=== PATIENT | female | born 1970 | race Asian ===

== ENCOUNTER 2019-09-17 12:19 | Emergency (ER) | payer OTHER, SELFPAY ==
[2019-09-17 12:31] VITALS: BP 162/87; PULSE 58; RESP 16; TEMP 36.9; O2SAT 100; BMI 29.7
--- NOTE | 2019-09-17 12:34 | PC.NURSE ---
has hx of vertigo
--- NOTE | 2019-09-17 12:35 | ED.DIZZY ---
HPI - Dizziness <Ema López PA-C - Last Filed: 09/17/19 16:48> General Chief Complaint: Dizziness Stated Complaint: Dizziness, Weak, stomach hurts when she poops Time Seen by Provider: 09/17/19 12:32 Source: family Mode of arrival: Ambulatory History of Present Illness HPI Narrative: This is a well-appearing 49-year-old female with a history of ear problems and episodes of dizziness who presents to the emergency department because of left-sided ear pain, sounds in her ear for the last week, and generalized weakness, with dizziness and nausea since yesterday evening that cme on gradually. She states that every day she has some ear discomfort, this is chronic for her she has seen specialists for this years ago. However for the last week this has been worsening and includes left-sided ear pain. Yesterday evening she began experiencing some nausea and dizziness associated with this and still has this somewhat this morning she was able to eat a meal for dinner last night but only had crackers today because of the nausea. Last night she also felt some generalized weakness as if her limbs feel heavy. She notes that her weakness was particularly strong this morning when she was on the toilet having a bowel movement, she was having sharp pain (which she had never had) around the center of her belly and she says she broke out in a sweat all over and felt extremely weak but that it was a normal bowel movement and she was not straining. She states that she has bowel movements 1 to 3 times a week and these have been normal for her--denies trouble with constipation or any diarrhea, she takes probiotics on a regular basis. She states she has been drinking less fluids since yesterday she did try to take some Pedialyte, but thinks she definitely did not drink very much. She denies any blood in her stool, dark tarry stools, diarrhea, constipation, coordination difficulty, speech changes, headache, palpitations, syncope, fever, joint pain, muscle aches or any other symptoms. Related Data Home Medications Medication Instructions Recorded Confirmed CHOLECALCIFEROL (VITAMIN D3) #0 07/02/09 (Vitamin D3) Loratadine (Claritin) PRN #0 07/02/09 VITAMIN C - #0 07/02/09 (VITAMIN C) Previous Rx's Medication Instructions Recorded meclizine 25 mg PO TID #12 tab 09/17/19 ondansetron HCl [Zofran] 4 mg PO Q6H #30 tab 09/17/19 Review of Systems <Ema López PA-C - Last Filed: 09/17/19 16:48> Review of Systems Narrative: GENERAL: Denies chills, fatigue, malaise, fever, sweats. HEENT: Positive for sinus pain, ear pain, dizziness negative for sore throat, difficulty swallowing RESPIRATORY: Denies dyspnea, cough, wheezing, hemoptysis, sputum. CARDIOVASCULAR: Denies chest pain, palpitations, orthopnea, edema, GASTROINTESTINAL: Positive for nausea, one short episode of abdominal pain, negative for vomiting, diarrhea, constipation, melena, blood in stool. : Denies dysuria, frequency, incontinence, hematuria, positive for chronic urinary retention (sensation of bladder not being empty after peeing). MUSCULOSKELETAL: Positive for generalized weak feeling, negative for joint pain, or bony pain SKIN: Denies rash, skin lesions, or other NEUROLOGIC: Positive for feeling of generalized weakness, slight head pressure, negative for headache, numbness, change in speech, confusion, seizures, incoordination. PSYCHIATRIC: No concerning psychosocial issues. 12 point review of systems is negative except for those stated above Patient History <Ema López PA-C - Last Filed: 09/17/19 16:48> Social History Smoking Status: Never smoker Smoking Status: Never smoker Substance Use Type: does not use Exam <Ema López PA-C - Last Filed: 09/17/19 16:48> Narrative Exam Narrative: GENERAL: 49 year old patient appears stated age. Well-nourished, well-developed patient, in mild distress. HEAD: Atraumatic. Normocephalic. EYES: Pupils equal round and reactive. Extraocular motions intact. No scleral icterus. No injection or drainage. ENT: Bilateral TMs have scarring present, both are pearly bonilla in appearance with a cone of light visible no apparent effusion, there is very mild frontal sinus tenderness on the left, negative maxillary sinus tenderness, Nose without bleeding, purulent drainage. Throat without erythema, tonsillar hypertrophy or exudate. Airway patent. NECK: Trachea midline. Non tender CARDIOVASCULAR: Regular rate and rhythm without murmurs, gallops, or rubs. RESPIRATORY: Clear to auscultation. Breath sounds equal bilaterally. No wheezes, rales, or rhonchi. GASTROINTESTINAL: Abdomen soft, non-tender, nondistended. EXTREMITIES: No edema or joint tenderness. BACK: Nontender without deformity or crepitance. No flank tenderness. NEURO: AOx3. Cranial nerves are intact, strength is intact and equal bilaterally 5/5 UEs and LEs, sensation is intact, coordination is intact SKIN: No rash or erythema of visible areas Initial Vital Signs Initial Vital Signs: Vital Signs Temperature 98.5 F 09/17/19 12:31 Pulse Rate 58 L 09/17/19 12:31 Respiratory Rate 16 09/17/19 12:31 Blood Pressure 162/87 H 09/17/19 12:31 Pulse Oximetry 100 09/17/19 12:31 <Walker Ordonez DO - Last Filed: 09/17/19 17:10> Initial Vital Signs Initial Vital Signs: Vital Signs Temperature 98.5 F 09/17/19 12:31 Pulse Rate 58 L 09/17/19 12:31 Respiratory Rate 16 09/17/19 12:31 Blood Pressure 162/87 H 09/17/19 12:31 Pulse Oximetry 100 09/17/19 12:31 Course <Ema López PA-C - Last Filed: 09/17/19 16:48> Orders Ordered: ED Orders 09/17/19 12:35 EKG-12 Lead Stat 09/17/19 12:45 Complete Blood Count AUTO DIFF Stat Comprehensive Metabolic Panel Stat Troponin I Stat 09/17/19 13:37 Urinalysis Screen (Dip Only) Stat Urine Microscopic Stat Discontinued Medications Sodium Chloride (Normal Saline 0.9%) 1,000 mls @ 500 mls/hr IV BOLUS ONE Stop: 09/17/19 15:06 Last Infusion: 09/17/19 15:27 Dose: 500 mls/hr Documented by: Admin: 09/17/19 13:30 Dose: 500 mls/hr Documented by: MEISENB Meclizine HCl (Antivert) 25 mg PO NOW ONE Stop: 09/17/19 13:08 Last Admin: 09/17/19 13:30 Dose: 25 mg Documented by: MEISENB Ondansetron HCl (Zofran) 4 mg IV NOW ONE Stop: 09/17/19 13:08 Last Admin: 09/17/19 13:31 Dose: 4 mg Documented by: JAYME Ondansetron HCl (Zofran) 4 mg IV NOW ONE Stop: 09/17/19 14:38 Vital Signs Vital signs: Vital Signs - 8 hr 09/17/19 12:31 09/17/19 13:30 09/17/19 14:00 Temperature 98.5 F Pulse Rate 58 L 67 55 L Respiratory Rate 16 19 18 Blood Pressure 162/87 H Blood Pressure [Left Arm] 142/90 H 129/73 Pulse Oximetry 100 100 99 <Walker Ordonez DO - Last Filed: 09/17/19 17:10> Orders Ordered: ED Orders 09/17/19 12:35 EKG-12 Lead Stat 09/17/19 12:45 Complete Blood Count AUTO DIFF Stat Comprehensive Metabolic Panel Stat Troponin I Stat 09/17/19 13:37 Urinalysis Screen (Dip Only) Stat Urine Microscopic Stat Discontinued Medications Sodium Chloride (Normal Saline 0.9%) 1,000 mls @ 500 mls/hr IV BOLUS ONE Stop: 09/17/19 15:06 Last Infusion: 09/17/19 15:27 Dose: 500 mls/hr Documented by: Admin: 09/17/19 13:30 Dose: 500 mls/hr Documented by: JAYME Meclizine HCl (Antivert) 25 mg PO NOW ONE Stop: 09/17/19 13:08 Last Admin: 09/17/19 13:30 Dose: 25 mg Documented by: JAYME Ondansetron HCl (Zofran) 4 mg IV NOW ONE Stop: 09/17/19 13:08 Last Admin: 09/17/19 13:31 Dose: 4 mg Documented by: JAYME Ondansetron HCl (Zofran) 4 mg IV NOW ONE Stop: 09/17/19 14:38 Vital Signs Vital signs: Vital Signs - 8 hr 09/17/19 12:31 09/17/19 13:30 09/17/19 14:00 Temperature 98.5 F Pulse Rate 58 L 67 55 L Respiratory Rate 16 19 18 Blood Pressure 162/87 H Blood Pressure [Left Arm] 142/90 H 129/73 Pulse Oximetry 100 100 99 MDM - Dizziness <Ema López PA-C - Last Filed: 05/20/20 16:48> Medical Records Attestation: I reviewed the patient's medical records. Lab Data Attestation: I reviewed the patient's lab results. Result diagrams: 09/17/19 12:45 09/17/19 12:45 Labs: Lab Results 09/17/19 09/17/19 09/17/19 Range/Units 12:45 12:45 12:45 WBC 6.0 (4.5-11.0) X10^3/uL RBC 4.67 (4.0-5.2) X10^6/uL Hgb 14.8 (12.0-16.0) g/dL Hct 43.1 (36-46) % MCV 92.3 (80-100) fL MCH 31.7 (26-34) PG MCHC 34.3 (30-36) % RDW 12.9 (11.6-14.8) % Plt Count 269 (150-400) X10^3/uL Neut % (Auto) 82.8 H (50-75) % Lymph % (Auto) 11.1 L (25-40) % [place] % (Auto) 4.9 (3-14) % Eos % (Auto) 0.8 L (2-4) % Baso % (Auto) 0.4 (0-2) % Neut # (Auto) 5000 (3095-0402) /uL Lymph # (Auto) 700 L (8102-9278) /uL [place] # (Auto) 300 (0-900) /uL Eos # (Auto) 0 (0-450) /uL Baso # (Auto) 0 (0-100) /uL Sodium 139 (137-145) mmol/L Potassium 4.5 (3.4-5.1) mmol/L Chloride 104 (98-107) mmol/L Carbon Dioxide 23 (22-32) mmol/L BUN 12 (7-17) mg/dL Creatinine 0.47 L (0.52-1.04) mg/dL Estimated GFR > 60.0 (>60) mL/min BUN/Creatinine Ratio 25.5 H (6-22) Glucose 111 H (70-100) mg/dL Calcium 9.9 (8.4-10.2) mg/dL Total Bilirubin 0.7 (0.2-1.3) mg/dL AST 31 (14-36) IU/L ALT 24 (<35) IU/L Alkaline Phosphatase 66 (38-126) U/L Troponin I < 0.012 (0.01-0.034) ng/mL Total Protein 9.1 H (6.3-8.2) g/dL Albumin 5.1 H (3.5-5.0) g/dL Globulin 4.0 (1.7-4.1) g/dL Albumin/Globulin Ratio 1.3 (1.0-2.8) Urine Color Urine Appearance Urine pH (4.5-8.0) Ur Specific [place] (1.000-1.035) Urine Protein (Negative) Urine Glucose (UA) (Negative) g/dL Urine Ketones (NEGATIVE) Urine Occult Blood (Negative) Urine Nitrate (Negative) Urine Bilirubin (NEGATIVE) Urine Urobilinogen (0.2) E.U./dL Ur Leukocyte Esterase (NEGATIVE) Urine RBC (0-5/HPF) Urine WBC (0-5/HPF) Amorphous Sediment Urine Bacteria (None) Ur Culture Indicated? 09/17/19 Range/Units 13:37 WBC (4.5-11.0) X10^3/uL RBC (4.0-5.2) X10^6/uL Hgb (12.0-16.0) g/dL Hct (36-46) % MCV (80-100) fL MCH (26-34) PG MCHC (30-36) % RDW (11.6-14.8) % Plt Count (150-400) X10^3/uL Neut % (Auto) (50-75) % Lymph % (Auto) (25-40) % [place] % (Auto) (3-14) % Eos % (Auto) (2-4) % Baso % (Auto) (0-2) % Neut # (Auto) (3257-9862) /uL Lymph # (Auto) (3149-9680) /uL [place] # (Auto) (0-900) /uL Eos # (Auto) (0-450) /uL Baso # (Auto) (0-100) /uL Sodium (137-145) mmol/L Potassium (3.4-5.1) mmol/L Chloride (98-107) mmol/L Carbon Dioxide (22-32) mmol/L BUN (7-17) mg/dL Creatinine (0.52-1.04) mg/dL Estimated GFR (>60) mL/min BUN/Creatinine Ratio (6-22) Glucose (70-100) mg/dL Calcium (8.4-10.2) mg/dL Total Bilirubin (0.2-1.3) mg/dL AST (14-36) IU/L ALT (<35) IU/L Alkaline Phosphatase (38-126) U/L Troponin I (0.01-0.034) ng/mL Total Protein (6.3-8.2) g/dL Albumin (3.5-5.0) g/dL Globulin (1.7-4.1) g/dL Albumin/Globulin Ratio (1.0-2.8) Urine Color Yellow Urine Appearance Cloudy Urine pH 7.0 (4.5-8.0) Ur Specific [place] 1.010 (1.000-1.035) Urine Protein Negative (Negative) Urine Glucose (UA) Negative (Negative) g/dL Urine Ketones Negative (NEGATIVE) Urine Occult Blood Negative (Negative) Urine Nitrate Negative (Negative) Urine Bilirubin Negative (NEGATIVE) Urine Urobilinogen 0.2 (0.2) E.U./dL Ur Leukocyte Esterase Trace H (NEGATIVE) Urine RBC 0-1/hpf (0-5/HPF) Urine WBC None seen (0-5/HPF) Amorphous Sediment 2+ Urine Bacteria None seen (None) Ur Culture Indicated? Cult not indicated ECG Data Attestation: I personally reviewed and interpreted this ECG as follows: Interpretation: NSR rate of 64 MN interval 146 QRS 74ms P-R-T axes 16 44 50, no ST changes--EKG also reviewed by Dr. Ordonez ED attending [facility] Narrative Medical decision making narrative: This is a well-appearing 49 year with a history significant for chronic ear discomfort bilaterally, tinnitus and history episodic vertigo who presents to the emergency department with dizziness nausea and feeling of weakness since last night. Her symptoms are somewhat similar to her normal but worse, particularly the dizziness. She had been worked up for this extensively and seen specialists due to her previous episodes of dizziness. Neuro exam was negative. Patient also complained of a brief episode of abdominal pain that occurred while having a bowel movement this morning, with associated probable vaso-vagal syndrome, abdominal exam was benign, very low suspicion for acute abdominal process. History and EKG were not suggestive of cardiac etiology for her dizziness. Based on history and exam I also have very low suspicion for CVA or TIA. Patient had improvement with Zofran and meclizine, as well as 500 mL of normal saline. Suspect BPPV versus viral illness. She was discharged with plans for PCP follow-up, [facility], as well as prescriptions for Zofran and meclizine. Patient was feeling much improved upon discharge. She was provided with a work note through Sunday as needed and advised not to operate any machinery or drive while taking meclizine or while having symptoms of dizziness. She was also given information regarding the Karla maneuver for BPPV. COVID test is pending at time of discharge. <Walker Ordonez, - Last Filed: 09/17/19 17:10> Lab Data Labs: Lab Results 09/17/19 09/17/19 09/17/19 Range/Units 12:45 12:45 12:45 WBC 6.0 (4.5-11.0) X10^3/uL RBC 4.67 (4.0-5.2) X10^6/uL Hgb 14.8 (12.0-16.0) g/dL Hct 43.1 (36-46) % MCV 92.3 (80-100) fL MCH 31.7 (26-34) PG MCHC 34.3 (30-36) % RDW 12.9 (11.6-14.8) % Plt Count 269 (150-400) X10^3/uL Neut % (Auto) 82.8 H (50-75) % Lymph % (Auto) 11.1 L (25-40) % [place] % (Auto) 4.9 (3-14) % Eos % (Auto) 0.8 L (2-4) % Baso % (Auto) 0.4 (0-2) % Neut # (Auto) 5000 (7476-1732) /uL Lymph # (Auto) 700 L (5682-2099) /uL [place] # (Auto) 300 (0-900) /uL Eos # (Auto) 0 (0-450) /uL Baso # (Auto) 0 (0-100) /uL Sodium 139 (137-145) mmol/L Potassium 4.5 (3.4-5.1) mmol/L Chloride 104 (98-107) mmol/L Carbon Dioxide 23 (22-32) mmol/L BUN 12 (7-17) mg/dL Creatinine 0.47 L (0.52-1.04) mg/dL Estimated GFR > 60.0 (>60) mL/min BUN/Creatinine Ratio 25.5 H (6-22) Glucose 111 H (70-100) mg/dL Calcium 9.9 (8.4-10.2) mg/dL Total Bilirubin 0.7 (0.2-1.3) mg/dL AST 31 (14-36) IU/L ALT 24 (<35) IU/L Alkaline Phosphatase 66 (38-126) U/L Troponin I < 0.012 (0.01-0.034) ng/mL Total Protein 9.1 H (6.3-8.2) g/dL Albumin 5.1 H (3.5-5.0) g/dL Globulin 4.0 (1.7-4.1) g/dL Albumin/Globulin Ratio 1.3 (1.0-2.8) Urine Color Urine Appearance Urine pH (4.5-8.0) Ur Specific [place] (1.000-1.035) Urine Protein (Negative) Urine Glucose (UA) (Negative) g/dL Urine Ketones (NEGATIVE) Urine Occult Blood (Negative) Urine Nitrate (Negative) Urine Bilirubin (NEGATIVE) Urine Urobilinogen (0.2) E.U./dL Ur Leukocyte Esterase (NEGATIVE) Urine RBC (0-5/HPF) Urine WBC (0-5/HPF) Amorphous Sediment Urine Bacteria (None) Ur Culture Indicated? 09/17/19 Range/Units 13:37 WBC (4.5-11.0) X10^3/uL RBC (4.0-5.2) X10^6/uL Hgb (12.0-16.0) g/dL Hct (36-46) % MCV (80-100) fL MCH (26-34) PG MCHC (30-36) % RDW (11.6-14.8) % Plt Count (150-400) X10^3/uL Neut % (Auto) (50-75) % Lymph % (Auto) (25-40) % [place] % (Auto) (3-14) % Eos % (Auto) (2-4) % Baso % (Auto) (0-2) % Neut # (Auto) (0129-2173) /uL Lymph # (Auto) (6077-9082) /uL [place] # (Auto) (0-900) /uL Eos # (Auto) (0-450) /uL Baso # (Auto) (0-100) /uL Sodium (137-145) mmol/L Potassium (3.4-5.1) mmol/L Chloride (98-107) mmol/L Carbon Dioxide (22-32) mmol/L BUN (7-17) mg/dL Creatinine (0.52-1.04) mg/dL Estimated GFR (>60) mL/min BUN/Creatinine Ratio (6-22) Glucose (70-100) mg/dL Calcium (8.4-10.2) mg/dL Total Bilirubin (0.2-1.3) mg/dL AST (14-36) IU/L ALT (<35) IU/L Alkaline Phosphatase (38-126) U/L Troponin I (0.01-0.034) ng/mL Total Protein (6.3-8.2) g/dL Albumin (3.5-5.0) g/dL Globulin (1.7-4.1) g/dL Albumin/Globulin Ratio (1.0-2.8) Urine Color Yellow Urine Appearance Cloudy Urine pH 7.0 (4.5-8.0) Ur Specific [place] 1.010 (1.000-1.035) Urine Protein Negative (Negative) Urine Glucose (UA) Negative (Negative) g/dL Urine Ketones Negative (NEGATIVE) Urine Occult Blood Negative (Negative) Urine Nitrate Negative (Negative) Urine Bilirubin Negative (NEGATIVE) Urine Urobilinogen 0.2 (0.2) E.U./dL Ur Leukocyte Esterase Trace H (NEGATIVE) Urine RBC 0-1/hpf (0-5/HPF) Urine WBC None seen (0-5/HPF) Amorphous Sediment 2+ Urine Bacteria None seen (None) Ur Culture Indicated? Cult not indicated Discharge Plan Departure Patient Disposition: Home Clinical Impression: Vertigo Discharge Date/Time: 09/17/19 15:27 Instructions: DI for Vertigo Activity Restrictions/Additional Instructions: Thank you for letting us be part of your care today There is no evidence of an emergent or life threatening illness at this time, but follow up with your doctor in 1-2 days is recommended nonetheless to continue to rule out serious underlying causes of your symptoms. Please call the office for an appointment. Please return to the Emergency Department for any worsening or persistent symptoms. Please take medications as directed. And prescribe Zofran which is anti nausea medication and also meclizine which is a medication that helps with nausea and also help with your dizziness but you should not operate machinery or drive when your taking meclizine. I have also provided a work note for you through Sunday of next week. It is very important he follow up with primary care I have referred you to the [facility] and they can help you get set up with a new primary care physician if you prefer to see someone at [place] rather than [place] as you have stated. Please rest and monitor your symptoms at home, if you develop worsening dizziness, change in your vision, worsening headache, weakness increasing or one-sided weakness or difficulty with coordination, or any other symptoms of concern to you please seek medical care or return to the emergency department. Prescriptions: New ondansetron HCl [Zofran] 4 mg tablet 4 mg PO Q6H Qty: 30 RF: 0 meclizine 25 mg tablet 25 mg PO TID Qty: 12 RF: 0 No Action CHOLECALCIFEROL (VITAMIN D3) (Vitamin D3) Qty: 0 RF: 0 Loratadine (Claritin) PRN Qty: 0 RF: 0 VITAMIN C - (VITAMIN C) Qty: 0 RF: 0 Referrals: [facility] [Outside] Stand Alone Forms: Work Release Note <Walker Ordonez, DO - Last Filed: 09/17/19 17:10> Cosign ED Attending Cosyazature Attestation: Dr Ordonez Co-Sign Statement: I was available for consultation during this patient's emergency department visit. This chart is signed by myself for administrative purposes only. I did not have direct contact with this patient during this visit. They were seen independently by the [facility].
[2019-09-17 13:04] LABS: Add Manual Diff / Slide Review NO; Basophils Absolute Auto 0 /uL (0-100); Basophils Percent Auto 0.4 % (0-2); Eosinophils Absolute Auto 0 /uL (0-450); Eosinophils Percent Auto 0.8 % (2-4); Hematocrit 43.1 % (36-46); Hemoglobin 14.8 g/dL (12.0-16.0); Lymphocytes Absolute Auto 700 /uL (1100-4500); Lymphocytes Percent Auto 11.1 % (25-40); Mean Corpuscular HGB Conc 34.3 % (30-36); Mean Corpuscular Hemoglobin 31.7 PG (26-34); Mean Corpuscular Volume 92.3 fL (80-100); Monocytes Absolute Auto 300 /uL (0-900); Monocytes Percent Auto 4.9 % (3-14); Neutrophils Absolute Auto 5000 /uL (1500-7000); Neutrophils Percent Auto 82.8 % (50-75); Platelet Count 269 X10^3/uL (150-400); Red Blood Cell Count 4.67 X10^6/uL (4.0-5.2); Red Cell Distribution Width 12.9 % (11.6-14.8)
[2019-09-17 13:18] LABS: Alanine Aminotransferase 24 IU/L (<35); Albumin 5.1 g/dL (3.5-5.0); Albumin Globulin Ratio 1.3 (1.0-2.8); Alkaline Phosphatase 66 U/L (38-126); Aspartate Aminotransferase 31 IU/L (14-36); BUN Creatinine Ratio 25.5 (6-22); Bilirubin Total 0.7 mg/dL (0.2-1.3); Blood Urea Nitrogen 12 mg/dL (7-17); Calcium 9.9 mg/dL (8.4-10.2); Carbon Dioxide 23 mmol/L (22-32); Chloride 104 mmol/L (98-107); Estimated Glomerular Filt Rate > 60.0 mL/min (>60); Glucose 111 mg/dL (70-100); HEMOLYSIS < 15 (0-50); Potassium 4.5 mmol/L (3.4-5.1); Sodium 139 mmol/L (137-145); Total Protein 9.1 g/dL (6.3-8.2)
[2019-09-17 13:29] LABS: Troponin I < 0.012 ng/mL (0.01-0.034)
[2019-09-17 13:30] VITALS: BP 142/90; PULSE 67; RESP 19; O2SAT 100
[2019-09-17] MEDS: MECLIZINE HCL 12.5 MG TABLET 25 MG PO (13:30)
[2019-09-17] MEDS: SODIUM CHLORIDE 0.9% 1,000 ML 500 ML IV (13:30)
[2019-09-17] MEDS: ONDANSETRON 4 MG/2 ML INJ IV (13:31)
[2019-09-17 13:48] LABS: Appearance Urine UA CLOUDY; Bilirubin Urine UA NEGATIVE (NEGATIVE); Color Urine UA YELLOW; Glucose Urine UA NEGATIVE (Negative); Ketones Urine UA NEGATIVE (NEGATIVE); Leukocyte Esterase Urine UA TRACE (NEGATIVE); Nitrite Urine UA NEGATIVE (Negative); Occult Blood Urine UA NEGATIVE (Negative); Protein Urine UA NEGATIVE (Negative); Urobilinogen Urine UA 0.2 E.U./dL (0.2)
[2019-09-17 13:50] LABS: Bacteria Urine None Seen; WBC Urine None Seen (0-5/HPF)
[2019-09-17 13:55] LABS: Amorphous Sediment Urine 2+; Culture Indicated Urine Cult Not Indicated; RBC Urine 0-1/HPF (0-5/HPF)
[2019-09-17 14:00] VITALS: BP 129/73; PULSE 55; RESP 18; O2SAT 99
[2019-09-23 22:54] LABS: COVID19 Sendout Not Detected (Not Detected)
== END 2019-09-17 15:27 | disposition home or self-care (01) ==
PROVIDERS: Emergency Provider Student in an Organized Health Care Education/Training Program; Family Provider Internal Medicine
DX: R42 Dizziness and giddiness (principal); H92.02 Otalgia, left ear; Z11.59 Encounter for screening for other viral diseases; R53.1 Weakness; R11.0 Nausea
CPT/HCPCS: 36415; 80053; 81003; 81015; 84484; 85025; 87635; 93005; 96361; 96374; 99284; J2405

== ENCOUNTER → 2020-03-05 10:46 | Outpatient (CLI) | payer OTHER, SELFPAY ==
[2020-03-05 11:48] LABS: Hematocrit 43.5 % (36-46); Hemoglobin 14.7 g/dL (12.0-16.0); Mean Corpuscular HGB Conc 33.9 % (30-36); Mean Corpuscular Hemoglobin 30.6 PG (26-34); Mean Corpuscular Volume 90.5 fL (80-100); Platelet Count 268 X10^3/uL (150-400); Red Cell Distribution Width 12.6 % (11.6-14.8); White Blood Cell Count 3.2 X10^3/uL (4.5-11.0)
[2020-03-05 12:09] LABS: Alanine Aminotransferase 21 IU/L (<35); Albumin Globulin Ratio 1.3 (1.0-2.8); Alkaline Phosphatase 58 U/L (38-126); Aspartate Aminotransferase 28 IU/L (14-36); BUN Creatinine Ratio 26.4 (6-22); Bilirubin Total 0.7 mg/dL (0.2-1.3); Blood Urea Nitrogen 14 mg/dL (7-17); Calcium 10.2 mg/dL (8.4-10.2); Carbon Dioxide 30 mmol/L (22-32); Chloride 103 mmol/L (98-107); Cholesterol 297 mg/dL (140-199); Estimated Glomerular Filt Rate > 60.0 mL/min (>60); Glucose 101 mg/dL (70-100); HDL Cholesterol 58 mg/dL (40-60); HEMOLYSIS < 15 (0-50); LDL Cholesterol Calculated 218 mg/dL (<100); Potassium 4.5 mmol/L (3.4-5.1); Sodium 140 mmol/L (137-145); Triglycerides 107 mg/dL (35-150)
== END ==
PROVIDERS: Family Provider Internal Medicine; PCP Nurse Practitioner Family; Referring Provider Nurse Practitioner Family; Visit Provider Nurse Practitioner Family
DX: Z00.00 Encounter for general adult medical examination without abnormal findings (principal); Z13.6 Encounter for screening for cardiovascular disorders
CPT/HCPCS: 36415; 80053; 80061; 85027

== ENCOUNTER → 2020-11-08 10:05 | Outpatient (CLI) | payer OTHER, SELFPAY ==
[2020-11-08 11:35] LABS: Hematocrit 41.2 % (36-46); Hemoglobin 13.7 g/dL (12.0-16.0); Mean Corpuscular HGB Conc 33.3 % (30-36); Mean Corpuscular Hemoglobin 30.8 PG (26-34); Mean Corpuscular Volume 92.5 fL (80-100); Platelet Count 264 X10^3/uL (150-400); Red Blood Cell Count 4.45 X10^6/uL (4.0-5.2); Red Cell Distribution Width 13.1 % (11.6-14.8); White Blood Cell Count 3.7 X10^3/uL (4.5-11.0)
[2020-11-08 12:26] LABS: Alanine Aminotransferase 23 IU/L (<35); Albumin 4.7 g/dL (3.5-5.0); Albumin Globulin Ratio 1.3 (1.0-2.8); Alkaline Phosphatase 53 U/L (38-126); Aspartate Aminotransferase 27 IU/L (14-36); Bilirubin Total 0.5 mg/dL (0.2-1.3); Blood Urea Nitrogen 12 mg/dL (7-17); Calcium 9.7 mg/dL (8.4-10.2); Carbon Dioxide 25 mmol/L (22-32); Chloride 106 mmol/L (98-107); Cholesterol 275 mg/dL (140-199); Estimated Glomerular Filt Rate > 60.0 mL/min (>60); Globulin 3.7 g/dL (1.7-4.1); Glucose 99 mg/dL (70-100); HDL Cholesterol 58 mg/dL (40-60); HEMOLYSIS < 15 (0-50); LDL Cholesterol Calculated 195 mg/dL (<100); Potassium 4.5 mmol/L (3.4-5.1); Sodium 139 mmol/L (137-145); Total Protein 8.4 g/dL (6.3-8.2); Triglycerides 110 mg/dL (35-150)
== END ==
PROVIDERS: Family Provider Internal Medicine; PCP Nurse Practitioner Family; Referring Provider Nurse Practitioner Family; Visit Provider Nurse Practitioner Family
DX: Z00.00 Encounter for general adult medical examination without abnormal findings (principal); E78.2 Mixed hyperlipidemia
CPT/HCPCS: 36415; 80053; 80061; 85027

== ENCOUNTER → 2020-11-30 09:14 | Outpatient (CLI) | payer OTHER, SELFPAY ==
[2020-12-02 11:39] LABS: Albumin 4.1 g/dL (2.9-4.4); Alpha-1-Globulin 0.2 g/dL (0.0-0.4); Alpha-2-Globulin 0.7 g/dL (0.4-1.0); Gamma Globulin 1.5 g/dL (0.4-1.8); Globulin Total 3.4 g/dL (2.2-3.9); Protein, Total 7.5 g/dL (6.0-8.5)
== END ==
PROVIDERS: Family Provider Internal Medicine; PCP Nurse Practitioner Family; Referring Provider Nurse Practitioner Family; Visit Provider Nurse Practitioner Family
DX: R77.9 Abnormality of plasma protein, unspecified (principal)
CPT/HCPCS: 36415; 84155; 84165

== ENCOUNTER → 2021-06-07 11:03 | Outpatient (CLI) | payer OTHER, SELFPAY ==
[2021-06-07 12:40] LABS: Add Manual Diff / Slide Review NO; Basophils Absolute Auto 0 /uL (0-100); Basophils Percent Auto 0.7 % (0-2); Eosinophils Absolute Auto 100 /uL (0-450); Eosinophils Percent Auto 2.7 % (2-4); Hematocrit 40.1 % (36-46); Hemoglobin 13.4 g/dL (12.0-16.0); Lymphocytes Absolute Auto 1000 /uL (1100-4500); Lymphocytes Percent Auto 27.9 % (25-40); Mean Corpuscular HGB Conc 33.4 % (30-36); Mean Corpuscular Volume 89.9 fL (80-100); Monocytes Absolute Auto 300 /uL (0-900); Monocytes Percent Auto 9.2 % (3-14); Neutrophils Absolute Auto 2100 /uL (1500-7000); Neutrophils Percent Auto 59.5 % (50-75); Platelet Count 252 X10^3/uL (150-400); Red Blood Cell Count 4.46 X10^6/uL (4.0-5.2); Red Cell Distribution Width 14.2 % (11.6-14.8); White Blood Cell Count 3.5 X10^3/uL (4.5-11.0)
[2021-06-07 13:12] LABS: Alanine Aminotransferase 39 IU/L (<35); Albumin 4.8 g/dL (3.5-5.0); Albumin Globulin Ratio 1.3 (1.0-2.8); Alkaline Phosphatase 55 U/L (38-126); Aspartate Aminotransferase 42 IU/L (14-36); BUN Creatinine Ratio 22.2 (6-22); Bilirubin Total 0.6 mg/dL (0.2-1.3); Blood Urea Nitrogen 12 mg/dL (7-17); Calcium 9.9 mg/dL (8.4-10.2); Carbon Dioxide 28 mmol/L (22-32); Chloride 107 mmol/L (98-107); Cholesterol 156 mg/dL (140-199); Estimated Glomerular Filt Rate > 60.0 mL/min (>60); Globulin 3.6 g/dL (1.7-4.1); Glucose 94 mg/dL (70-100); HDL Cholesterol 59 mg/dL (40-60); HEMOLYSIS < 15 (0-50); LDL Cholesterol Calculated 76 mg/dL (<100); Potassium 4.4 mmol/L (3.4-5.1); Sodium 142 mmol/L (137-145); Total Protein 8.4 g/dL (6.3-8.2); Triglycerides 107 mg/dL (35-150)
== END ==
PROVIDERS: Family Provider Internal Medicine; PCP Nurse Practitioner Family; Referring Provider Nurse Practitioner Family; Visit Provider Nurse Practitioner Family
DX: E78.2 Mixed hyperlipidemia (principal); R77.9 Abnormality of plasma protein, unspecified; Z00.00 Encounter for general adult medical examination without abnormal findings
CPT/HCPCS: 36415; 80053; 80061; 85025

== ENCOUNTER → 2021-11-23 15:25 | Outpatient (CLI) | payer OTHER, SELFPAY ==
[2021-11-23 16:06] LABS: Add Manual Diff / Slide Review NO; Basophils Absolute Auto 0 /uL (0-100); Basophils Percent Auto 0.8 % (0-2); Eosinophils Absolute Auto 100 /uL (0-450); Eosinophils Percent Auto 3.7 % (2-4); Hematocrit 41.6 % (36-46); Lymphocytes Absolute Auto 1200 /uL (1100-4500); Lymphocytes Percent Auto 33.3 % (25-40); Mean Corpuscular HGB Conc 33.8 % (30-36); Mean Corpuscular Hemoglobin 30.2 PG (26-34); Mean Corpuscular Volume 89.3 fL (80-100); Monocytes Absolute Auto 300 /uL (0-900); Monocytes Percent Auto 8.1 % (3-14); Neutrophils Absolute Auto 2000 /uL (1500-7000); Neutrophils Percent Auto 54.1 % (50-75); Platelet Count 237 X10^3/uL (150-400); Red Blood Cell Count 4.66 X10^6/uL (4.0-5.2); Red Cell Distribution Width 13.4 % (11.6-14.8); White Blood Cell Count 3.7 X10^3/uL (4.5-11.0)
[2021-11-23 16:51] LABS: Alanine Aminotransferase 33 IU/L (<35); Albumin 4.8 g/dL (3.5-5.0); Albumin Globulin Ratio 1.5 (1.0-2.8); Alkaline Phosphatase 61 U/L (38-126); Aspartate Aminotransferase 33 IU/L (14-36); BUN Creatinine Ratio 32.7 (6-22); Bilirubin Total 0.6 mg/dL (0.2-1.3); Blood Urea Nitrogen 16 mg/dL (7-17); Calcium 9.4 mg/dL (8.4-10.2); Carbon Dioxide 25 mmol/L (22-32); Chloride 104 mmol/L (98-107); Cholesterol 160 mg/dL (140-199); Estimated Glomerular Filt Rate > 60 mL/min (>60); Globulin 3.3 g/dL (1.7-4.1); Glucose 86 mg/dL (70-100); HDL Cholesterol 68 mg/dL (40-60); HEMOLYSIS 29 (0-50); LDL Cholesterol Calculated 73 mg/dL (<100); Potassium 4.1 mmol/L (3.4-5.1); Sodium 139 mmol/L (137-145); Total Protein 8.1 g/dL (6.3-8.2); Triglycerides 96 mg/dL (35-150)
[2021-11-23 17:07] LABS: Free T3, Triiodothyronine Free 3.68 pg/mL (2.77-5.27); Free T4, Direct Thyroxine 1.08 ng/dL (0.78-2.19)
[2021-11-23 17:21] LABS: Thyroid Stimulating Hormone 0.945 uIU/mL (0.47-4.68)
== END ==
PROVIDERS: Family Provider Internal Medicine; PCP Nurse Practitioner; Referring Provider Nurse Practitioner; Visit Provider Nurse Practitioner
DX: R53.83 Other fatigue (principal); E78.2 Mixed hyperlipidemia; Z79.899 Other long term (current) drug therapy
CPT/HCPCS: 36415; 80053; 80061; 84439; 84443; 84481; 85025

== ENCOUNTER → 2023-05-22 09:18 | Outpatient (CLI) | payer OTHER, SELFPAY ==
[2023-05-22 10:27] LABS: Add Manual Diff / Slide Review NO; Basophils Absolute Auto 0 /uL (0-100); Basophils Percent Auto 1.1 % (0-2); Eosinophils Absolute Auto 100 /uL (0-450); Eosinophils Percent Auto 2.9 % (2-4); Hematocrit 41.1 % (36-46); Hemoglobin 13.7 g/dL (12.0-16.0); Lymphocytes Absolute Auto 1100 /uL (1100-4500); Lymphocytes Percent Auto 31.1 % (25-40); Mean Corpuscular HGB Conc 33.3 % (30-36); Mean Corpuscular Hemoglobin 29.6 PG (26-34); Mean Corpuscular Volume 88.9 fL (80-100); Monocytes Absolute Auto 300 /uL (0-900); Monocytes Percent Auto 7.2 % (3-14); Neutrophils Absolute Auto 2000 /uL (1500-7000); Neutrophils Percent Auto 57.7 % (50-75); Platelet Count 258 X10^3/uL (150-400); Red Blood Cell Count 4.62 X10^6/uL (4.0-5.2); Red Cell Distribution Width 13.4 % (11.6-14.8); White Blood Cell Count 3.5 X10^3/uL (4.5-11.0)
[2023-05-22 10:49] LABS: Alanine Aminotransferase 53 IU/L (<35); Albumin 4.9 g/dL (3.5-5.0); Albumin Globulin Ratio 1.6 (1.0-2.8); Alkaline Phosphatase 77 U/L (38-126); Aspartate Aminotransferase 41 IU/L (14-36); BUN Creatinine Ratio 23.4 (6-22); Bilirubin Total 0.7 mg/dL (0.2-1.3); Blood Urea Nitrogen 11 mg/dL (7-17); Calcium 10.2 mg/dL (8.4-10.2); Carbon Dioxide 26 mmol/L (22-32); Chloride 103 mmol/L (98-107); Cholesterol 138 mg/dL (140-199); Estimated Glomerular Filt Rate > 60 mL/min (>60); Globulin 3.1 g/dL (1.7-4.1); Glucose 94 mg/dL (70-100); HDL Cholesterol 53 mg/dL (40-60); HEMOLYSIS < 15 (0-50); LDL Cholesterol Calculated 60 mg/dL (<100); Potassium 4.2 mmol/L (3.4-5.1); Sodium 139 mmol/L (137-145); Triglycerides 126 mg/dL (35-150)
[2023-05-22 11:19] LABS: Thyroid Stimulating Hormone 1.13 uIU/mL (0.47-4.68)
[2023-05-22 11:33] LABS: Free T3, Triiodothyronine Free 3.75 pg/mL (2.77-5.27); Free T4, Direct Thyroxine 1.06 ng/dL (0.78-2.19)
[2023-05-22 11:39] LABS: HIV 1 & 2 Ab/Ag 4th Gen Combo NEGATIVE (NEGATIVE); Hep C Virus Ab w/Reflex Quant NEGATIVE s/c (NEGATIVE)
== END ==
PROVIDERS: Family Provider Internal Medicine; PCP Nurse Practitioner; Referring Provider Nurse Practitioner; Visit Provider Nurse Practitioner
DX: Z00.00 Encounter for general adult medical examination without abnormal findings (principal); Z11.59 Encounter for screening for other viral diseases; Z11.4 Encounter for screening for human immunodeficiency virus [HIV]
CPT/HCPCS: 36415; 80053; 80061; 84439; 84443; 84481; 85025; 86803; 87389

== ENCOUNTER → 2023-07-03 12:44 | Outpatient (CLI) | payer OTHER, SELFPAY ==
--- NOTE | 2023-07-03 12:46 | DI.MG.S_ITS ---
BILATERAL DIGITAL DIAGNOSTIC MAMMOGRAM 3D/2D: 07/03/2023 CLINICAL: Intermittent pain in bilateral breasts. Comparison is made to exams dated: 06/01/2020 mammogram, 12/03/2018 mammogram, and 10/01/2017 mammogram - [facility]. Both breasts are heterogeneously dense, which may obscure small masses (category c / 51-75% glandular tissue). No significant masses, calcifications, or other findings are seen in either breast. Because the patient's symptoms are diffuse, no BB marker was placed and no additional mammographic views are indicated. IMPRESSION: NEGATIVE There is no mammographic evidence of malignancy. A 1 year screening mammogram is recommended. Diffuse, non-focal symptoms, such as pain or fullness are typically benign. Clinical follow-up is recommended, and further management of these symptoms should be based on the results of clinical evaluation. If diffuse symptoms persist or become more focal in nature, further clinical evaluation should be considered. Findings and recommendations were conveyed to the patient during today's evaluation. Based on the Tyrer Cuzick model (a risk assessment model) the patient's lifetime risk is 12.7% and her 10 year risk is 3.5%. According to the ACR, ACS, and NCCN guidelines, an annual breast MRI exam along with mammogram is recommended if the patient's lifetime risk is 20% or greater. This exam was interpreted at Station ID: [id number]. NOTE: For mammograms, a report in lay terms will be sent to the patient. Approximately 15% of breast malignancies will not be visualized mammographically. In the management of a palpable breast mass, a negative mammogram must not discourage biopsy of a clinically suspicious lesion. Electronically Signed By: Jalyn Douglas M.D., PH.D eb/:07/03/2023 14:09:24 letter sent: Clinical Evaluation ACR BI-RADS Category 1: Negative [id number]
== END ==
PROVIDERS: Family Provider Internal Medicine; PCP Nurse Practitioner; Referring Provider Nurse Practitioner; Visit Provider Nurse Practitioner
DX: N64.4 Mastodynia (principal); R92.333 Mammographic heterogeneous density, bilateral breasts; Z78.0 Asymptomatic menopausal state
CPT/HCPCS: 77066; G0279

== ENCOUNTER 2023-10-16 10:07 | Emergency (ER) | payer OTHER, SELFPAY ==
[2023-10-16] VITALS (8 sets, daily range): BP systolic 154–206; BP diastolic 88–107; PULSE 63–85; RESP 16; TEMP 37.1; O2SAT 97–99; BMI 28.3
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
[2023-10-16] MEDS: LIDOCAINE 5% PATCH 1 EACH TOP (10:59)
[2023-10-16] MEDS: ACETAMINOPHEN 325 MG TABLET 975 MG PO (10:59)
[2023-10-16] MEDS: methocarbamoL 500 MG TABLET 1000 MG PO (11:00)
[2023-10-16] MEDS: KETOROLAC 30 MG/ML VIAL IM (11:00)
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
== END 2023-10-16 11:39 | disposition home or self-care (01) ==
PROVIDERS: Emergency Provider Emergency Medicine; Family Provider Internal Medicine; PCP Nurse Practitioner
DX: M54.6 Pain in thoracic spine (principal); M54.50 Low back pain, unspecified; V43.52XA Car driver injured in collision with other type car in traffic accident, initial encounter
CPT/HCPCS: 72072; 72100; 96372; 99283; J1885

== ENCOUNTER → 2024-08-27 09:52 | Outpatient (CLI) | payer OTHER, SELFPAY ==
[2024-08-27 11:37] LABS: Add Manual Diff / Slide Review NO; Basophils Absolute Auto 0 /uL (0-100); Basophils Percent Auto 0.6 % (0-2); Eosinophils Absolute Auto 100 /uL (0-450); Eosinophils Percent Auto 2.9 % (2-4); Hematocrit 41.5 % (36-46); Hemoglobin 14.3 g/dL (12.0-16.0); Lymphocytes Absolute Auto 1200 /uL (1100-4500); Lymphocytes Percent Auto 27.3 % (25-40); Mean Corpuscular HGB Conc 34.4 % (30-36); Mean Corpuscular Hemoglobin 30.7 PG (26-34); Mean Corpuscular Volume 89.2 fL (80-100); Monocytes Absolute Auto 300 /uL (0-900); Monocytes Percent Auto 6.2 % (3-14); Neutrophils Absolute Auto 2800 /uL (1500-7000); Platelet Count 259 X10^3/uL (150-400); Red Blood Cell Count 4.66 X10^6/uL (4.0-5.2); Red Cell Distribution Width 13.9 % (11.6-14.8); White Blood Cell Count 4.5 X10^3/uL (4.5-11.0)
[2024-08-27 12:08] LABS: BUN Creatinine Ratio 25.9 (6-22); Blood Urea Nitrogen 14 mg/dL (7-17); Carbon Dioxide 26 mmol/L (22-32); Chloride 102 mmol/L (98-107); Cholesterol 158 mg/dL (140-199); Estimated Glomerular Filt Rate > 60 mL/min (>60); Glucose 115 mg/dL (70-99); HDL Cholesterol 58 mg/dL (40-60); HEMOLYSIS < 15 (0-50); LDL Cholesterol Calculated 73 mg/dL (<100); Potassium 4.6 mmol/L (3.4-5.1); Sodium 140 mmol/L (137-145); Triglycerides 134 mg/dL (35-150)
[2024-08-27 12:16] LABS: Hemoglobin A1C% w Est Avg Glu 6.8 % (4.0-6.0)
[2024-08-27 12:37] LABS: TSH w/ Reflex to FT4 0.54 uIU/mL (0.47-4.68)
== END ==
PROVIDERS: Family Provider Internal Medicine; PCP Nurse Practitioner Family; Referring Provider Nurse Practitioner Family; Visit Provider Nurse Practitioner Family
DX: E66.3 Overweight (principal); R53.83 Other fatigue
CPT/HCPCS: 36415; 80048; 80061; 83036; 84443; 85025

== ENCOUNTER → 2024-08-29 15:55 | Outpatient (CLI) | payer OTHER, SELFPAY | PROVIDERS: Family Provider Internal Medicine; PCP Nurse Practitioner Family; Referring Provider Nurse Practitioner Family; Visit Provider Nurse Practitioner Family | DX: Z12.11 Encounter for screening for malignant neoplasm of colon (principal) | CPT/HCPCS: 82274 ==

== ENCOUNTER → 2024-09-19 15:07 | Outpatient (CLI) | payer OTHER, SELFPAY ==
--- NOTE | 2024-09-19 15:11 | DI.MG.S_ITS ---
MM screening mammo BI: 09/19/2024. BI-RADS: 1 CLINICAL: 54-year old female for bilateral screening mammogram. Tyrer-Cuzick lifetime risk of 10.8%. No personal or first-degree family history of breast cancer. PRIOR EXAMS 07/03/2023, 06/01/2020. MAMMOGRAPHY TECHNIQUE: 2D and 3D (tomosynthesis) digital mammographic views obtained, with additional images as needed for full coverage. Current study was also evaluated with a Computer Aided Detection (CAD) system. DENSITY C. The breasts are heterogeneously dense, which may obscure small masses. MAMMOGRAPHY FINDINGS Bilateral: No suspicious mass, asymmetry, microcalcification, or other abnormality seen. IMPRESSION: * No evidence of malignancy. RECOMMENDATIONS Bilateral * Annual screening mammography. OVERALL ASSESSMENT CATEGORY BI-RADS-1: Negative. [employer] recommends annual screening mammography beginning at age 40 for women with average risk of breast cancer. ELECTRONICALLY SIGNED: Faisal Sharif M.D. on 09/19/2024 at 05:51:58 PM PT Interpreting Station ID: [id number]
== END ==
PROVIDERS: Family Provider Internal Medicine; PCP Nurse Practitioner Family; Referring Provider Nurse Practitioner Family; Visit Provider Nurse Practitioner Family
DX: Z12.31 Encounter for screening mammogram for malignant neoplasm of breast (principal); R92.333 Mammographic heterogeneous density, bilateral breasts
CPT/HCPCS: 77063; 77067

== ENCOUNTER → 2025-03-17 11:44 | Outpatient (CLI) | payer OTHER, SELFPAY ==
[2025-03-17 13:05] LABS: Hemoglobin A1C% w Est Avg Glu 6.1 % (4.0-6.0)
== END ==
PROVIDERS: PCP Nurse Practitioner Family; Referring Provider Nurse Practitioner Family; Visit Provider Nurse Practitioner Family
DX: E11.9 Type 2 diabetes mellitus without complications (principal)
CPT/HCPCS: 36415; 83036